=== PATIENT | female | born 1945 | race Caucasian/White ===

== ENCOUNTER → 2016-09-12 | Outpatient (REF) | payer OTHER, MEDICAID ==
[2016-09-12 20:29] LABS: MEAN CORPUSCULAR HEMOGLOBIN 31.5 pg (27.0-33.0); MEAN CORPUSCULAR HGB CONC 34.9 g/dl (32.0-36.5); MEAN CORPUSCULAR VOLUME 90.3 fl (80.0-96.0); RED CELL DISTRIBUTION WIDTH 13.7 % (11.5-14.5)
[2016-09-12 20:39] LABS: VITAMIN B12 LEVEL 1013 PG/ML (247-911)
[2016-09-12 20:45] LABS: ALBUMIN 3.6 GM/DL (3.2-5.2); ALBUMIN/GLOBULIN RATIO 1.33 (1.00-1.93); ALKALINE PHOSPHATASE 213 U/L (45-117); ALT/SGPT 37 U/L (12-78); ANION GAP 10 MEQ/L (8-16); AST/SGOT 20 U/L (15-37); BILIRUBIN,TOTAL 0.5 MG/DL (0.2-1.0); BLOOD UREA NITROGEN 10 MG/DL (7-18); CALCIUM LEVEL 8.7 MG/DL (8.8-10.2); CARBON DIOXIDE LEVEL 26 MEQ/L (21-32); CHLORIDE LEVEL 106 MEQ/L (98-107); CREATININE FOR GFR 0.65 MG/DL (0.55-1.02); FREE T4 1.15 NG/DL (0.76-1.46); GLOMERULAR FILTRATION RATE > 60.0 (>39); GLUCOSE, FASTING 99 MG/DL (83-110); POTASSIUM SERUM 3.9 MEQ/L (3.5-5.1); SODIUM LEVEL 142 MEQ/L (136-145); TOTAL PROTEIN 6.3 GM/DL (6.4-8.2)
[2016-09-13 08:55] LABS: THYROID PEROXIDASE ANTIBODY 276.5 U/ML (<60.0)
== END ==
LOC: M SFHCADAM 15:22
PROVIDERS: ATTEND Family Medicine
DX: E53.8 Deficiency of other specified B group vitamins (principal); E11.8 Type 2 diabetes mellitus with unspecified complications; E03.9 Hypothyroidism, unspecified; E55.9 Vitamin D deficiency, unspecified

== ENCOUNTER → 2016-12-19 | Outpatient (CLI) | payer OTHER, MEDICAID ==
--- NOTE | 2016-12-20 19:20 | REP ---
RIGHT KNEE SERIES, COMPLETE: 12/19/2016. Clinical history: Knee pain. Technique: Five views are provided. There are no prior studies. Findings There appears to be soft tissue swelling and likely a hematoma in the subcutaneous tissues medial to the knee and posteriorly. Contour bulge of the skin over the medial aspect of the knee quite prominent. Subcutaneous tissues are hyperdense compared remainder of subcutaneous fat suggesting fluid/ hematoma. Bones are severely demineralized. No patellar subluxation or dislocation but there is narrowing of the patellofemoral joint space. No suprapatellar effusion. No visible or displaced fracture evident. Medial and lateral compartments with some sclerotic changes along their joint margins without erosion, avulsion or fracture line. No loose body. Impression: 1. 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 2. Presumed hematoma in the soft tissues medial to the knee. No definite fracture. Signed by Baldemar Ku MD 12/21/2016 03:19 P
--- NOTE | 2016-12-20 19:22 | REP ---
LEFT KNEE, COMPLETE: 12/19/2016. Clinical history: left knee pain. Findings: Five views are provided. Bones are demineralized. There are degenerative changes in the tibial spines and along the medial and lateral compartments as well. Patellofemoral joint with minor degenerative change. No fracture or subluxation. There is joint space narrowing of that patellofemoral region. I see no loose body, osteochondral defect or displaced fracture. No definite effusion. Impression: 1. Osteoporosis and degenerative changes without visible or displaced fracture, avulsion or subluxation. Patellofemoral joint space narrowing. Signed by Baldemar Ku MD 12/21/2016 03:20 P
== END ==
LOC: M ADAMS 11:26
PROVIDERS: ATTEND Family Medicine
DX: M25.561 Pain in right knee (principal); M25.562 Pain in left knee; G25.81 Restless legs syndrome; E11.8 Type 2 diabetes mellitus with unspecified complications
CPT/HCPCS: 73564; 80053; 82728; 83036; 83550; 83735; 85027; G0463

== ENCOUNTER → 2016-12-19 | Outpatient (REF) | payer OTHER, MEDICAID ==
[2016-12-19 19:30] LABS: MEAN CORPUSCULAR HEMOGLOBIN 29.7 pg (27.0-33.0); MEAN CORPUSCULAR HGB CONC 33.3 g/dl (32.0-36.5); MEAN CORPUSCULAR VOLUME 89.1 fl (80.0-96.0); RED CELL DISTRIBUTION WIDTH 14.2 % (11.5-14.5); WHITE BLOOD COUNT 8.5 K/mm3 (4.0-10.0)
[2016-12-19 20:43] LABS: ALBUMIN 3.5 GM/DL (3.2-5.2); ALBUMIN/GLOBULIN RATIO 1.17 (1.00-1.93); ALKALINE PHOSPHATASE 132 U/L (45-117); ALT/SGPT 42 U/L (12-78); ANION GAP 8 MEQ/L (8-16); AST/SGOT 16 U/L (15-37); BILIRUBIN,TOTAL 0.5 MG/DL (0.2-1.0); BLOOD UREA NITROGEN 15 MG/DL (7-18); CALCIUM LEVEL 9.6 MG/DL (8.8-10.2); CARBON DIOXIDE LEVEL 31 MEQ/L (21-32); CHLORIDE LEVEL 101 MEQ/L (98-107); CREATININE FOR GFR 0.73 MG/DL (0.55-1.02); FERRITIN 9 NG/ML (8-252); GLOMERULAR FILTRATION RATE > 60.0 (>39); GLUCOSE, FASTING 143 MG/DL (83-110); MAGNESIUM LEVEL 1.9 MG/DL (1.8-2.4); PERCENT SATURATION 29.2 % (13.2-37.4); POTASSIUM SERUM 4.7 MEQ/L (3.5-5.1); SODIUM LEVEL 140 MEQ/L (136-145); TOTAL IRON BINDING CAPACITY 432 UG/DL (250-450); TOTAL PROTEIN 6.5 GM/DL (6.4-8.2)
== END ==
LOC: M SFHCADAM 11:22
PROVIDERS: ATTEND Family Medicine
DX: G25.81 Restless legs syndrome (principal); E11.8 Type 2 diabetes mellitus with unspecified complications

== ENCOUNTER → 2017-03-20 | Outpatient (REF) | payer OTHER, MEDICAID ==
[2017-03-20 12:22] LABS: MEAN CORPUSCULAR HEMOGLOBIN 29.8 pg (27.0-33.0); MEAN CORPUSCULAR HGB CONC 33.6 g/dl (32.0-36.5); MEAN CORPUSCULAR VOLUME 88.8 fl (80.0-96.0); RED CELL DISTRIBUTION WIDTH 14.4 % (11.5-14.5); WHITE BLOOD COUNT 10.7 K/mm3 (4.0-10.0)
[2017-03-20 12:56] LABS: ALBUMIN 3.4 GM/DL (3.2-5.2); ALBUMIN/GLOBULIN RATIO 1.42 (1.00-1.93); ALKALINE PHOSPHATASE 59 U/L (45-117); ALT/SGPT 15 U/L (12-78); ANION GAP 8 MEQ/L (8-16); AST/SGOT 4 U/L (15-37); BILIRUBIN,TOTAL 0.3 MG/DL (0.2-1.0); BLOOD UREA NITROGEN 13 MG/DL (7-18); CALCIUM LEVEL 9.2 MG/DL (8.8-10.2); CARBON DIOXIDE LEVEL 29 MEQ/L (21-32); CHLORIDE LEVEL 108 MEQ/L (98-107); CHOLESTEROL LEVEL 120 MG/DL (<200); CREATININE FOR GFR 0.59 MG/DL (0.55-1.02); GLOMERULAR FILTRATION RATE > 60.0 (>39); GLUCOSE, FASTING 80 MG/DL (83-110); POTASSIUM SERUM 4.6 MEQ/L (3.5-5.1); SODIUM LEVEL 145 MEQ/L (136-145); TOTAL PROTEIN 5.8 GM/DL (6.4-8.2); TRIGLYCERIDES LEVEL 103 MG/DL (<150); VITAMIN B12 LEVEL 1230 PG/ML (247-911)
== END ==
LOC: M SFHCADAM 11:09
PROVIDERS: ATTEND Family Medicine
DX: I25.10 Atherosclerotic heart disease of native coronary artery without angina pectoris (principal); E11.8 Type 2 diabetes mellitus with unspecified complications; E78.2 Mixed hyperlipidemia; I11.9 Hypertensive heart disease without heart failure; E55.9 Vitamin D deficiency, unspecified; E53.8 Deficiency of other specified B group vitamins

== ENCOUNTER → 2017-08-09 | Outpatient (REF) | payer OTHER, MEDICAID ==
[2017-08-09 22:30] LABS: HEMATOCRIT 38.1 % (36.0-47.0); HEMOGLOBIN 12.4 g/dl (12.0-16.0); MEAN CORPUSCULAR HGB CONC 32.5 g/dl (32.0-36.5); MEAN CORPUSCULAR VOLUME 92.3 fl (80.0-96.0); PLATELET COUNT, AUTOMATED 391 10^3/uL (150-450); RED BLOOD COUNT 4.13 10^6/uL (4.00-5.40); RED CELL DISTRIBUTION WIDTH 14.2 % (11.5-14.5); WHITE BLOOD COUNT 8.3 10^3/uL (4.0-10.0)
[2017-08-09 22:46] LABS: ALBUMIN 3.8 GM/DL (3.2-5.2); ALBUMIN/GLOBULIN RATIO 1.23 (1.00-1.93); ALKALINE PHOSPHATASE 150 U/L (45-117); ALT/SGPT 23 U/L (12-78); ANION GAP 9 MEQ/L (8-16); AST/SGOT 9 U/L (7-37); BILIRUBIN,TOTAL 0.5 MG/DL (0.2-1.0); BLOOD UREA NITROGEN 18 MG/DL (7-18); CALCIUM LEVEL 9.3 MG/DL (8.8-10.2); CARBON DIOXIDE LEVEL 27 MEQ/L (21-32); CHLORIDE LEVEL 105 MEQ/L (98-107); CREATININE FOR GFR 0.85 MG/DL (0.55-1.30); GLOMERULAR FILTRATION RATE > 60.0 (>39); GLUCOSE, FASTING 74 MG/DL (70-100); POTASSIUM SERUM 4.6 MEQ/L (3.5-5.1); SODIUM LEVEL 141 MEQ/L (136-145); TOTAL PROTEIN 6.9 GM/DL (6.4-8.2)
[2017-08-09 22:55] LABS: ESTIMATED AVERAGE GLUCOSE 148 MG/DL (60-110); HEMOGLOBIN A1c 6.8 %
[2017-08-10 10:53] LABS: FOLATE 9.5 NG/ML (>5.4); TOTAL 25(OH) VITAMIN D 141.8 NG/ML (30.0-100.0); VITAMIN B12 LEVEL 1238 PG/ML (247-911)
== END ==
LOC: M SFHCADAM 16:07
DX: R26.9 Unspecified abnormalities of gait and mobility (principal); G63 Polyneuropathy in diseases classified elsewhere; E11.8 Type 2 diabetes mellitus with unspecified complications; E03.9 Hypothyroidism, unspecified; E55.9 Vitamin D deficiency, unspecified
CPT/HCPCS: 82746

== ENCOUNTER → 2018-01-23 | Outpatient (REF) | payer OTHER, MEDICAID ==
[2018-01-23 20:13] LABS: ANION GAP 8 MEQ/L (8-16); BLOOD UREA NITROGEN 19 MG/DL (7-18); CALCIUM LEVEL 9.1 MG/DL (8.8-10.2); CARBON DIOXIDE LEVEL 28 MEQ/L (21-32); CHLORIDE LEVEL 106 MEQ/L (98-107); CREATININE FOR GFR 0.88 MG/DL (0.55-1.30); GLOMERULAR FILTRATION RATE > 60.0 (>39); GLUCOSE, FASTING 73 MG/DL (70-100); POTASSIUM SERUM 4.8 MEQ/L (3.5-5.1); SODIUM LEVEL 142 MEQ/L (136-145)
[2018-01-23 20:22] LABS: ESTIMATED AVERAGE GLUCOSE 166 MG/DL (60-110); HEMOGLOBIN A1c 7.4 %; TOTAL 25(OH) VITAMIN D 53.6 NG/ML (30.0-100.0)
== END ==
LOC: M SFHCADAM 14:13
DX: E11.8 Type 2 diabetes mellitus with unspecified complications (principal); E55.9 Vitamin D deficiency, unspecified
CPT/HCPCS: 83036

== ENCOUNTER → 2019-02-24 | Outpatient (REF) | payer OTHER, MEDICAID ==
[2019-02-24 12:28] LABS: HEMATOCRIT 34.6 % (36.0-47.0); HEMOGLOBIN 11.3 g/dl (12.0-15.5); MEAN CORPUSCULAR HEMOGLOBIN 29.8 pg (27.0-33.0); MEAN CORPUSCULAR HGB CONC 32.7 g/dl (32.0-36.5); MEAN CORPUSCULAR VOLUME 91.3 fl (80.0-96.0); PLATELET COUNT, AUTOMATED 373 10^3/uL (150-450); RED BLOOD COUNT 3.79 10^6/uL (4.00-5.40); WHITE BLOOD COUNT 9.9 10^3/uL (4.0-10.0)
[2019-02-24 13:01] LABS: ALBUMIN 3.3 GM/DL (3.2-5.2); BILIRUBIN,TOTAL 0.4 MG/DL (0.2-1.0); CALCIUM LEVEL 9.6 MG/DL (8.8-10.2); CHOLESTEROL RISK RATIO 4.611 (<5); FREE T4 0.97 NG/DL (0.76-1.46); GLOMERULAR FILTRATION RATE 57.5 (>39); POTASSIUM SERUM 4.9 MEQ/L (3.5-5.1); THYROID STIMULATING HORMONE 3.95 uIU/ML (0.358-3.740); TOTAL PROTEIN 6.4 GM/DL (6.4-8.2)
[2019-02-24 13:46] LABS: HEMOGLOBIN A1c 7.7 %
== END ==
LOC: M SFHCADAM 10:56
PROVIDERS: ATTEND Family Medicine
DX: I11.0 Hypertensive heart disease with heart failure (principal); E11.8 Type 2 diabetes mellitus with unspecified complications; E78.2 Mixed hyperlipidemia; I25.10 Atherosclerotic heart disease of native coronary artery without angina pectoris
CPT/HCPCS: 80053; 80061; 83036; 84439; 84443; 85027; G0463